=== PATIENT | female | born 1970 | race Caucasian/White ===

== ENCOUNTER → 2016-12-30 | Outpatient (CLI) | payer BC ==
[~2016-12-30] MED LIST: ASPI325T80 PO; B12; BUTA-193 PO; ESCI20TA10 PO; ESTROGEN PO; HYDR8TAB PO; MULT-658 PO; OMEP20CA9 PO
== END | disposition home or self-care (01) ==
LOC: RAD 09:37
PROVIDERS: ATTEND Orthopaedic Surgery
DX: M25.872 Other specified joint disorders, left ankle and foot (principal); M25.472 Effusion, left ankle; Z87.81 Personal history of (healed) traumatic fracture

== ENCOUNTER 2017-03-18 06:44 | Emergency (ER) | payer BC ==
[~2017-03-18] VITALS: Ht 170.2 cm; Wt 110.5 kg
[2017-03-18] MEDS ORDERED: GABA600T2 PO (07:20)
[2017-03-18] MEDS ORDERED: ESTR1TAB15 PO (07:21)
[2017-03-18] MEDS ORDERED: CARI350T14 PO (07:22)
[2017-03-18] MEDS ORDERED: TRAM50TA2 PO (07:23)
[2017-03-18] MEDS ORDERED: PREG75CA PO (07:26)
[2017-03-18] MEDS ORDERED: CEFP250T PO (07:26)
[2017-03-18] MEDS ORDERED: HYDR5SUS PO (07:29)
[2017-03-18] MEDS ORDERED: LACT1CAP40 PO (07:31)
[2017-03-18] MEDS ORDERED: MORPHINE SULFATE 4 MG/ML, 1ML ONE (07:56)
[2017-03-18] MEDS ORDERED: ONDANSETRON 2MG/ML, 2ML ONE (07:56)
[2017-03-18] MEDS: MORPHINE SULFATE 4 MG/ML, 1ML IVPush PRN ×2 (07:59→08:29)
[2017-03-18 08:00] LABS: BASOPHILS # (AUTO) 0.02 x10^3/uL (0-0.1); BASOPHILS % (AUTO) 0 % (0-1); EOSINOPHILS # (AUTO) 0.31 x10^3/uL (0-0.4); EOSINOPHILS % (AUTO) 6 % (1-7); LYMPHOCYTES # (AUTO) 2.54 x10^3/uL (1-3.4); LYMPHOCYTES % (AUTO) 47 % (22-44); MD NO; MEAN CORPUSCULAR HEMOGLOBIN 30.4 pg (27.0-34.8); MEAN CORPUSCULAR HGB CONC 33.2 g/dL (32.4-35.8); MEAN CORPUSCULAR VOLUME 91.4 fL (80-100); MEAN PLATELET VOLUME 10.4 fL (7.4-10.4); MONOCYTES # (AUTO) 0.55 x10^3/uL (0.2-0.8); MONOCYTES % (AUTO) 10 % (2-9); NEUTROPHILS # (AUTO) 1.97 x10^3/uL (1.8-6.8); NEUTROPHILS % (AUTO) 37 % (42-75); PLATELET COUNT 201 x10^3/uL (130-400); RED BLOOD COUNT 4.49 x10^6/uL (3.82-5.3); RED CELL DISTRIBUTION WIDTH 13.2 % (9.6-15.2)
[2017-03-18] MEDS ORDERED: ONDANSETRON 2MG/ML, 2ML IVPush ONE (08:00)
[2017-03-18] MEDS ORDERED: DIAZEPAM 5 MG/ML, 2ML IVPush ONE (08:00)
[2017-03-18] MEDS ORDERED: SODIUM CHLORIDE 0.9% 1,000ML IVBOLUS ONE (08:00)
[2017-03-18 08:06] LABS: ALBUMIN 3.3 g/dL (3.4-5.0); ANION GAP 7 mmol/L (5-15); CALCIUM 8.3 mg/dL (8.5-10.1); CHLORIDE 106 mmol/L (98-107); CREATININE 0.62 mg/dL (0.55-1.02); HIGH-SENSITIVITY CRP 0.66 mg/dL (0.02-0.30)
[2017-03-18] MEDS ORDERED: morphine SULFATE 10 MG/ML, 1ML ONE (08:26)
[2017-03-18 08:31] LABS: SEDIMENTATION RATE 11 mm/hr (0-20)
[2017-03-18 09:32] VITALS: BP 103/59
== END 2017-03-18 09:50 | disposition home or self-care (01) ==
LOC: ED 09:45
DX: M54.16 Radiculopathy, lumbar region (principal)
CPT/HCPCS: 36415; 80048; 82040; 85025; 85651; 86141; 96361; 96374; 96375; 99284; J2405; J3360; J7030; J7512

== ENCOUNTER → 2017-04-06 | Outpatient (CLI) | payer BC ==
[~2017-04-06] MED LIST changes: +CARI350T14 PO; +CEFP250T PO; +ESTR1TAB15 PO; +GABA600T2 PO; +HYDR5SUS PO; +LACT1CAP40 PO; +PREG75CA PO; +TRAM50TA2 PO
== END | disposition home or self-care (01) ==
LOC: CFH 07:12
DX: M47.816 Spondylosis without myelopathy or radiculopathy, lumbar region (principal); M25.551 Pain in right hip; M25.552 Pain in left hip
CPT/HCPCS: 72110; 72148

== ENCOUNTER → 2017-12-04 | Outpatient (CLI) | payer BC | END | disposition home or self-care (01) | LOC: CFH 08:36 | DX: M25.551 Pain in right hip (principal); M25.552 Pain in left hip | CPT/HCPCS: 73523 ==

== ENCOUNTER → 2018-01-10 | Outpatient (CLI) | payer BC ==
[~2018-01-10] MED LIST changes: +GADOBUTROL 10 MMOL/10 ML PFS ONE
== END | disposition home or self-care (01) ==
LOC: RAD 07:22
PROVIDERS: ATTEND Registered Nurse
DX: M50.30 Other cervical disc degeneration, unspecified cervical region (principal); G43.711 Chronic migraine without aura, intractable, with status migrainosus; M54.12 Radiculopathy, cervical region; R53.1 Weakness; R20.0 Anesthesia of skin
CPT/HCPCS: 70553; 72156; A9585

== ENCOUNTER → 2018-01-21 | Outpatient (CLI) | payer BC ==
[~2018-01-21] MED LIST changes: -GADOBUTROL 10 MMOL/10 ML PFS ONE
== END | disposition home or self-care (01) ==
LOC: RAD 07:58
DX: S82.892A Other fracture of left lower leg, initial encounter for closed fracture (principal); M94.272 Chondromalacia, left ankle and joints of left foot; X58.XXXA Exposure to other specified factors, initial encounter; Y93.89 Activity, other specified; Y92.89 Other specified places as the place of occurrence of the external cause; Y99.8 Other external cause status

== ENCOUNTER → 2018-06-06 | Outpatient (CLI) | payer BC ==
[~2018-06-06] MED LIST changes: -GABA600T2 PO; +GABA600T7 PO
== END | disposition home or self-care (01) ==
LOC: RAD 13:02
PROVIDERS: ATTEND Orthopaedic Surgery
DX: M77.32 Calcaneal spur, left foot (principal); S82.892D Other fracture of left lower leg, subsequent encounter for closed fracture with routine healing; X58.XXXD Exposure to other specified factors, subsequent encounter

== ENCOUNTER → 2018-06-26 | Outpatient (CLI) | payer BC | END | disposition home or self-care (01) | LOC: CFH 07:05 | PROVIDERS: ATTEND Family Medicine | DX: K80.20 Calculus of gallbladder without cholecystitis without obstruction (principal); K76.0 Fatty (change of) liver, not elsewhere classified; R10.13 Epigastric pain; R11.2 Nausea with vomiting, unspecified | CPT/HCPCS: 76700 ==

== ENCOUNTER → 2018-07-23 | Outpatient (CLI) | payer BC | END | disposition home or self-care (01) | LOC: RAD 16:35 | PROVIDERS: ATTEND Nurse Practitioner | DX: K80.20 Calculus of gallbladder without cholecystitis without obstruction (principal); K76.0 Fatty (change of) liver, not elsewhere classified; R11.2 Nausea with vomiting, unspecified | CPT/HCPCS: 74181 ==

== ENCOUNTER → 2019-04-07 | Outpatient (CLI) | payer BC ==
[~2019-04-07] MED LIST changes: +NORT25CA78 PO; +PANT20TA3 PO; +PROP60TA PO; +TRAM100T13 PO; +ZOLP10TA5 PO
== END | disposition home or self-care (01) ==
LOC: RAD 13:05
PROVIDERS: ATTEND Physical Medicine & Rehabilitation
DX: M47.26 Other spondylosis with radiculopathy, lumbar region (principal); M48.061 Spinal stenosis, lumbar region without neurogenic claudication; M51.16 Intervertebral disc disorders with radiculopathy, lumbar region; G89.4 Chronic pain syndrome; G43.909 Migraine, unspecified, not intractable, without status migrainosus; M25.552 Pain in left hip; M25.551 Pain in right hip; M25.572 Pain in left ankle and joints of left foot; Z88.0 Allergy status to penicillin; Z79.891 Long term (current) use of opiate analgesic; Z88.2 Allergy status to sulfonamides; Z88.1 Allergy status to other antibiotic agents; Z91.048 Other nonmedicinal substance allergy status; Z90.49 Acquired absence of other specified parts of digestive tract; Z88.5 Allergy status to narcotic agent; Z91.040 Latex allergy status
CPT/HCPCS: 72148

== ENCOUNTER 2019-04-22 09:06 | Outpatient (CLI) | payer BC | END 2019-04-22 23:59 | disposition home or self-care (01) | LOC: CFH 09:06 | PROVIDERS: ATTEND Family Medicine | DX: Z12.31 Encounter for screening mammogram for malignant neoplasm of breast (principal); N64.89 Other specified disorders of breast | CPT/HCPCS: 77067 ==

== ENCOUNTER → 2019-06-23 | Outpatient (CLI) | payer BC | END | disposition home or self-care (01) | LOC: CFH 13:10 | PROVIDERS: ATTEND Family Medicine | DX: R10.2 Pelvic and perineal pain (principal); Z87.442 Personal history of urinary calculi; Z90.49 Acquired absence of other specified parts of digestive tract | CPT/HCPCS: 74176 ==

== ENCOUNTER 2019-07-10 18:34 | Emergency (ER) | payer BC ==
[~2019-07-10] VITALS: Ht 170.2 cm; Wt 94.3 kg
[2019-07-10] MEDS ORDERED: KETOROLAC 30 MG/1 ML IVPush ONE (19:30)
[2019-07-10] MEDS ORDERED: SODIUM CHLORIDE FLUSH 10ML SYR IVF ONE (19:30)
[2019-07-10] MEDS ORDERED: KETOROLAC 30 MG/1 ML ONE (19:36)
[2019-07-10 19:44] LABS: BASOPHILS # (AUTO) 0.08 x10^3/uL (0-0.1); BASOPHILS % (AUTO) 1 % (0-1); EOSINOPHILS # (AUTO) 1.27 x10^3/uL (0-0.4); EOSINOPHILS % (AUTO) 13 % (1-7); LYMPHOCYTES # (AUTO) 4.11 x10^3/uL (1-3.4); LYMPHOCYTES % (AUTO) 43 % (22-44); MD NO; MEAN CORPUSCULAR HGB CONC 31.8 g/dL (32.4-35.8); MEAN CORPUSCULAR VOLUME 94.3 fL (80-100); MEAN PLATELET VOLUME 10.2 fL (7.4-10.4); MONOCYTES # (AUTO) 0.58 x10^3/uL (0.2-0.8); MONOCYTES % (AUTO) 6 % (2-9); NEUTROPHILS # (AUTO) 3.53 x10^3/uL (1.8-6.8); NEUTROPHILS % (AUTO) 37 % (42-75); PLATELET COUNT 261 x10^3/uL (130-400); RED BLOOD COUNT 4.22 x10^6/uL (3.82-5.3)
[2019-07-10 19:55] LABS: ALANINE AMINOTRANSFERASE 53 U/L (12-78); ALBUMIN 3.3 g/dL (3.4-5.0); ANION GAP 4 mmol/L (5-15); CALCIUM 8.1 mg/dL (8.5-10.1); CHLORIDE 108 mmol/L (98-107); CREATININE 0.66 mg/dL (0.55-1.02)
[2019-07-10 19:58] LABS: ALKALINE PHOSPHATASE 90 U/L (45-117); BILIRUBIN,TOTAL 0.3 mg/dL (0.2-1.0); TOTAL PROTEIN 6.8 g/dL (6.4-8.2)
--- NOTE | 2019-07-10 20:16 | NUR ---
Late entry and first contact with patient at 1910: Patient presents to ER c/o midline abd pain which radiates to right side back. Patient denies N/V/D. Patient was dx with a UTI and yeast infection recently and is taking abx. Patient is in obvious discomfort. Respirations even and unlabored.
[2019-07-10 20:28] LABS: MICROSCOPIC NOT IND
--- NOTE | 2019-07-10 20:41 | NUR ---
Patient to CT.
[2019-07-10 20:53] LABS: CULTURE INDICATED? NO
[2019-07-10] MEDS ORDERED: OMNIPAQUE 350 MG/ML, 100ML BOTTLE ONE (20:54)
--- NOTE | 2019-07-10 21:35 | NUR ---
PAIN BETTER AFTER TORADOL PER PT.
[2019-07-10 21:39] VITALS: BP 109/62
== END 2019-07-10 21:42 | disposition home or self-care (01) ==
LOC: ED 21:34
DX: R10.11 Right upper quadrant pain (principal); R10.31 Right lower quadrant pain; R19.7 Diarrhea, unspecified; R00.1 Bradycardia, unspecified; F17.200 Nicotine dependence, unspecified, uncomplicated; Z90.49 Acquired absence of other specified parts of digestive tract
CPT/HCPCS: 36415; 74177; 80053; 81003; 83605; 83690; 85025; 93005; 96374; 99285; J1885; Q9967

== ENCOUNTER 2019-08-05 17:46 | Emergency (ER) | payer BC ==
[~2019-08-05] VITALS: Ht 170.2 cm; Wt 93.7 kg
--- NOTE | 2019-08-05 18:18 | NUR ---
TRANSPORTATION LEAD: PT AMBULATORY TO ROOM FROM LOBBY
[2019-08-05 19:18] LABS: BASOPHILS # (AUTO) 0.05 x10^3/uL (0-0.1); BASOPHILS % (AUTO) 1 % (0-1); EOSINOPHILS % (AUTO) 7 % (1-7); LYMPHOCYTES % (AUTO) 37 % (22-44); MD NO; MEAN CORPUSCULAR HEMOGLOBIN 30.7 pg (27.0-34.8); MEAN CORPUSCULAR HGB CONC 32.5 g/dL (32.4-35.8); MEAN CORPUSCULAR VOLUME 94.7 fL (80-100); MEAN PLATELET VOLUME 10.3 fL (7.4-10.4); MONOCYTES # (AUTO) 0.74 x10^3/uL (0.2-0.8); MONOCYTES % (AUTO) 8 % (2-9); NEUTROPHILS # (AUTO) 4.51 x10^3/uL (1.8-6.8); NEUTROPHILS % (AUTO) 48 % (42-75); PLATELET COUNT 252 x10^3/uL (130-400); RED BLOOD COUNT 4.54 x10^6/uL (3.82-5.3); RED CELL DISTRIBUTION WIDTH 13.4 % (9.6-15.2)
[2019-08-05 19:26] LABS: ALANINE AMINOTRANSFERASE 39 U/L (12-78); ALBUMIN 3.8 g/dL (3.4-5.0); ANION GAP 3 mmol/L (5-15); CALCIUM 9.2 mg/dL (8.5-10.1); CHLORIDE 109 mmol/L (98-107); CREATININE 0.79 mg/dL (0.55-1.02)
[2019-08-05 19:29] LABS: ALKALINE PHOSPHATASE 88 U/L (45-117); BILIRUBIN,TOTAL 0.3 mg/dL (0.2-1.0); TOTAL PROTEIN 7.5 g/dL (6.4-8.2)
[2019-08-05] MEDS ORDERED: SODIUM CHLORIDE FLUSH 10ML SYR IVF ONE (19:30)
[2019-08-05 19:53] VITALS: BP 112/64
[2019-08-05 19:55] LABS: MICROSCOPIC INDICATED
[2019-08-05] MEDS ORDERED: OMNIPAQUE 350 MG/ML, 100ML BOTTLE ONE (20:27)
== END 2019-08-05 21:43 | disposition home or self-care (01) ==
LOC: ED 19:13
DX: R10.31 Right lower quadrant pain (principal); R10.33 Periumbilical pain; R10.32 Left lower quadrant pain; G89.29 Other chronic pain; F17.200 Nicotine dependence, unspecified, uncomplicated
CPT/HCPCS: 36415; 74177; 80053; 81001; 83690; 85025; 99285; Q9967

== ENCOUNTER → 2019-08-14 | Outpatient (CLI) | payer BC | END | disposition home or self-care (01) | LOC: RAD 10:22 | PROVIDERS: ATTEND Orthopaedic Surgery | DX: S82.892A Other fracture of left lower leg, initial encounter for closed fracture (principal); X58.XXXA Exposure to other specified factors, initial encounter; Y93.89 Activity, other specified; Y92.89 Other specified places as the place of occurrence of the external cause; Y99.8 Other external cause status ==

== ENCOUNTER → 2020-03-17 | Outpatient (CLI) | payer BC ==
[~2020-03-17] MED LIST changes: +EREN70AU INJ; -PANT20TA3 PO; +PANT20TA4 PO; +VARE1TAB21 PO
== END | disposition home or self-care (01) ==
LOC: STAR 11:13
PROVIDERS: ATTEND Otolaryngology
DX: Z20.828 Contact with and (suspected) exposure to other viral communicable diseases (principal); J32.0 Chronic maxillary sinusitis; J01.01 Acute recurrent maxillary sinusitis
CPT/HCPCS: 87635

== ENCOUNTER → 2020-03-17 | Outpatient (CLI) | payer BC ==
[2020-03-17 14:31] LABS: CHOL/HDL RATIO 2.4; FOLATE LEVEL 3.6 ng/mL (3.1-17.5); LDL/HDL RATIO 1.2 (0.5-3.0); PREALBUMIN 18.1 mg/dL (20.0-40.0)
== END | disposition home or self-care (01) ==
LOC: LAB 12:31
PROVIDERS: ATTEND Physician Assistant
DX: E78.5 Hyperlipidemia, unspecified (principal); E63.9 Nutritional deficiency, unspecified; E56.9 Vitamin deficiency, unspecified; K90.9 Intestinal malabsorption, unspecified; Z98.84 Bariatric surgery status
CPT/HCPCS: 36415; 80061; 82306; 82607; 82728; 82746; 83540; 83550; 84134; 84425; 84466

== ENCOUNTER 2020-03-23 05:41 | Day surgery (SDC) | payer BC ==
[~2020-03-23] VITALS: Ht 157.5 cm; Wt 93.5 kg
[2020-03-23 06:12] VITALS: BP 103/70
[2020-03-23] MEDS ORDERED: LACTATED RINGERS 1,000 ML IV SCH (06:30)
[2020-03-23] MEDS ORDERED: CHLORHEXIDINE 15 ML UDC MM ONE (06:30)
[2020-03-23] MEDS ORDERED: triamcinolone EXT (06:32)
[2020-03-23] MEDS ORDERED: FLUORESCEIN SODIUM 500 MG/5 ML ONE (07:06)
[2020-03-23] MEDS ORDERED: EPINEPHRINE TOPICAL SOLN 1 MG/ML, 30ML ONE (07:06)
[2020-03-23] MEDS ORDERED: BACITRACIN OINT 500U/GM, 15 GM ONE (07:06)
[2020-03-23] MEDS ORDERED: EPINEPHRINE 1 MG/ML, 1ML ONE (07:07)
[2020-03-23] MEDS ORDERED: LIDOCAINE/PF 1%, 30ML ONE (07:07)
[2020-03-23] MEDS ORDERED: OXYMETAZOLINE NASAL SPRAY 0.05%,30ML ONE (07:07)
[2020-03-23] MEDS ORDERED: BACITRACIN 50,000 UNIT ONE (07:07)
[2020-03-23] MEDS ORDERED: LIDOCAINE 1%, 20ML ONE (07:19)
[2020-03-23] MEDS ORDERED: MAGNESIUM SULFATE 1 GM/2 ML ONE (07:19)
[2020-03-23] MEDS ORDERED: LABETALOL 5MG/ML, 20ML ONE (07:19)
[2020-03-23] MEDS ORDERED: LIDOCAINE-MPF 2% ,5ML ONE (07:21)
[2020-03-23] MEDS ORDERED: MIDAZOLAM 1 MG/ML, 2ML ONE (07:21)
[2020-03-23] MEDS ORDERED: FENTANYL PF 250 MCG/5ML ONE (07:21)
[2020-03-23] MEDS ORDERED: GLYCOPYRROLATE 0.2MG/1ML, 5ML ONE (07:21)
[2020-03-23] MEDS ORDERED: DEXAMETHASONE 4 MG/ML, 1ML ONE (07:21)
[2020-03-23] MEDS ORDERED: ROCURONIUM 10MG/ML,5ML ONE (07:21)
[2020-03-23] MEDS ORDERED: PROPOFOL 10 MG/ML, 20ML ONE (07:21)
[2020-03-23] MEDS ORDERED: CEFAZOLIN 1,000 MG ONE (07:35)
[2020-03-23] MEDS ORDERED: ALBUTEROL SULFATE 2.5 MG/3 ML NPPB PRN (08:00)
[2020-03-23] MEDS ORDERED: MIDAZOLAM 1 MG/ML, 2ML IV PRN (08:00)
[2020-03-23] MEDS ORDERED: MEPERIDINE/PF 25MG/0.5ML IVPush PRN (08:00)
[2020-03-23] MEDS ORDERED: ONDANSETRON 2MG/ML, 2ML IVPush PRN (08:00)
[2020-03-23] MEDS ORDERED: METHOCARBAMOL 1,000 MG in DEXTROSE 5% 100 ML IV PRN (08:00)
[2020-03-23] MEDS ORDERED: DIPHENHYDRAMINE 50 MG/ML, 1ML IVPush PRN (08:00)
[2020-03-23] MEDS ORDERED: HALOPERIDOL 5 MG/ML IV PRN (08:00)
[2020-03-23] MEDS ORDERED: ACETAMINOPHEN 325 MG TABLET PO PRN (08:00)
[2020-03-23] MEDS ORDERED: hydrALAzine 20 MG/ML, 1ML IV PRN (08:00)
[2020-03-23] MEDS ORDERED: METOCLOPRAMIDE 5 MG/ML, 2ML IVPush PRN (08:00)
[2020-03-23] MEDS ORDERED: EPHEDRINE 50 MG/ML, 1ML IVPush PRN (08:00)
[2020-03-23] MEDS ORDERED: LABETALOL 5MG/ML, 20ML IV PRN (08:00)
[2020-03-23] MEDS ORDERED: DIAZEPAM 5 MG/ML, 2ML IVPush PRN (08:00)
[2020-03-23] MEDS ORDERED: LORazepam 2 MG/ML, 1ML IVPush PRN (08:00)
[2020-03-23] MEDS ORDERED: EPHEDRINE 50 MG/ML, 1ML IM PRN (08:00)
[2020-03-23] MEDS ORDERED: FENTANYL PF 100 MCG/2ML ONE (09:21)
[2020-03-23] MEDS ORDERED: ACETAMINOPHEN 650 MG/20.3 ML UDC ONE (09:21)
[2020-03-23] MEDS ORDERED: MEPERIDINE/PF 25MG/ML,1ML ONE (09:21)
[2020-03-23] MEDS: FENTANYL PF 100 MCG/2ML IV PRN ×2 (09:47→09:52)
== END 2020-03-23 12:20 | disposition home or self-care (01) ==
LOC: OUT 05:41
PROVIDERS: ATTEND Otolaryngology
DX: J32.0 Chronic maxillary sinusitis (principal); G43.909 Migraine, unspecified, not intractable, without status migrainosus; F41.9 Anxiety disorder, unspecified; K21.9 Gastro-esophageal reflux disease without esophagitis; F17.210 Nicotine dependence, cigarettes, uncomplicated; Z79.899 Other long term (current) drug therapy; Z91.040 Latex allergy status; Z98.890 Other specified postprocedural states; Z88.8 Allergy status to other drugs, medicaments and biological substances; Z82.49 Family history of ischemic heart disease and other diseases of the circulatory system; Z82.3 Family history of stroke; Z80.8 Family history of malignant neoplasm of other organs or systems
CPT/HCPCS: 31255; 31256; 88304; J0171; J0690; J1100; J2175; J2250; J2704; J3010; J3475; J7120

== ENCOUNTER 2020-03-30 05:55 | Day surgery (SDC) | payer BC ==
[~2020-03-30] VITALS: Ht 170.2 cm; Wt 95.1 kg
[~2020-03-30 05:55] MED LIST changes: +triamcinolone EXT
[2020-03-30 06:42] VITALS: BP 107/69
[2020-03-30 06:45] VITALS: BP 107/69
[2020-03-30] MEDS ORDERED: OXYMETAZOLINE NASAL SPRAY 0.05%,30ML ONE (06:55)
== END 2020-03-30 07:55 | disposition home or self-care (01) ==
LOC: OUT 05:55
PROVIDERS: ATTEND Otolaryngology
DX: J01.01 Acute recurrent maxillary sinusitis (principal); J32.0 Chronic maxillary sinusitis; Z20.822 Contact with and (suspected) exposure to COVID-19; Z79.899 Other long term (current) drug therapy; Z88.0 Allergy status to penicillin; Z88.2 Allergy status to sulfonamides; Z88.8 Allergy status to other drugs, medicaments and biological substances
CPT/HCPCS: 87635

== ENCOUNTER → 2020-04-26 | Outpatient (CLI) | payer BC ==
[~2020-04-26] MED LIST changes: +CARI-389 PO; -CARI350T14 PO
== END | disposition home or self-care (01) ==
LOC: CFH 13:08
DX: Z12.31 Encounter for screening mammogram for malignant neoplasm of breast (principal)
CPT/HCPCS: 77067

== ENCOUNTER → 2020-07-05 | Outpatient (CLI) | payer BC ==
[2020-07-05 12:28] LABS: BASOPHILS % (AUTO) 1 % (0-1); EOSINOPHILS % (AUTO) 8 % (1-7); LYMPHOCYTES % (AUTO) 37 % (22-44); MEAN CORPUSCULAR HEMOGLOBIN 30.5 pg (27.0-34.8); MEAN PLATELET VOLUME 10.2 fL (7.4-10.4); MONOCYTES % (AUTO) 7 % (2-9); NEUTROPHILS % (AUTO) 47 % (42-75); PLATELET COUNT 241 x10^3/uL (130-400); RED BLOOD COUNT 4.64 x10^6/uL (3.82-5.3); RED CELL DISTRIBUTION WIDTH 12.8 % (9.6-15.2)
[2020-07-05 12:45] LABS: MD NO
[2020-07-05 13:42] LABS: CHLORIDE 110 mmol/L (98-107)
[2020-07-05 14:07] LABS: ALANINE AMINOTRANSFERASE 32 U/L (12-78); ALBUMIN 3.6 g/dL (3.4-5.0); ALKALINE PHOSPHATASE 123 U/L (45-117); BILIRUBIN,TOTAL 0.5 mg/dL (0.2-1.0); CALCIUM 8.7 mg/dL (8.5-10.1); CREATININE 0.63 mg/dL (0.55-1.02); PREALBUMIN 14.9 mg/dL (20.0-40.0); TOTAL PROTEIN 7.4 g/dL (6.4-8.2)
[2020-07-05 14:22] LABS: ANION GAP 9 mmol/L (5-15)
== END | disposition home or self-care (01) ==
LOC: LAB 11:49
PROVIDERS: ATTEND Physician Assistant
DX: E63.9 Nutritional deficiency, unspecified (principal); E56.9 Vitamin deficiency, unspecified; E55.9 Vitamin D deficiency, unspecified; K90.9 Intestinal malabsorption, unspecified; Z98.84 Bariatric surgery status
CPT/HCPCS: 36415; 80053; 82306; 82330; 82607; 83970; 84134; 85025